=== PATIENT | female | born 1990 | race Caucasian/White ===

== ENCOUNTER 2022-07-06 08:19 | Outpatient (CLI) | payer OTHER, SELFPAY ==
[2022-07-06 11:05] LABS: Cholesterol* 256 mg/dL (90-199); Glucose* 93 mg/dL (60-115); Triglycerides* 105 mg/dL (40-149)
[2022-07-06 11:06] LABS: HDL Cholesterol* 74 mg/dL (>=50); LDL Cholesterol Calculated 161 mg/dL (<100)
== END 2022-07-06 08:20 | disposition home or self-care (01) ==
PROVIDERS: Visit Provider Physician Assistant
DX: Z01.419 Encounter for gynecological examination (general) (routine) without abnormal findings (principal); E03.9 Hypothyroidism, unspecified; F41.9 Anxiety disorder, unspecified; F32.A Depression, unspecified; Z13.6 Encounter for screening for cardiovascular disorders; Z13.1 Encounter for screening for diabetes mellitus
CPT/HCPCS: 80061; 82947; 84443

== ENCOUNTER 2023-09-03 17:10 | Outpatient (CLI) | payer OTHER, SELFPAY | END 2023-09-03 17:11 | disposition home or self-care (01) | LOC: NFLDREF 09-05 07:34 | PROVIDERS: Visit Provider Advanced Practice Midwife | DX: Z01.419 Encounter for gynecological examination (general) (routine) without abnormal findings (principal); E03.9 Hypothyroidism, unspecified; F41.9 Anxiety disorder, unspecified; F32.A Depression, unspecified; Z13.6 Encounter for screening for cardiovascular disorders | CPT/HCPCS: 80061; 84443 ==

== ENCOUNTER 2024-10-07 15:58 | Outpatient (CLI) | payer BC, SELFPAY ==
--- NOTE | 2024-10-07 16:00 | CRLHL7_ITS ---
For Patients: As a result of the Century Cures Act, medical imaging exams and procedure reports are released immediately into your electronic medical record. You may view this report before your referring provider. If you have questions, please contact your health care provider. INDICATION: Heavy and frequent menstruation TECHNIQUE: Transabdominal and transvaginal scanning was performed. Transvaginal scanning was performed to optimally evaluate the endometrium and adnexa. Ovarian blood flow was evaluated with color-flow and pulsed Doppler. COMPARISON: None. FINDINGS: The uterus is mildly enlarged grossly normal in shape. The uterus measures 9.3 x 4.9 x 6.9 cm. No myometrial mass is evident. The endometrial stripe is normal in thickness at 11 mm. The ovaries are normal in size and contain a number of follicles. The right ovary measures 3.2 x 1.8 x 1.5 cm and left 4.2 x 2.1 x 2.0 cm. Ovarian blood flow is demonstrated with color-flow and pulsed Doppler. No adnexal mass is evident. A trace of physiologic free fluid is noted. IMPRESSION: 1. Normal thickness endometrial stripe of 11 mm. 2. Mildly enlarged uterus. Dictated by Socrates Stallings MD @ 10/09/2024 6:52:05 AM (Electronically Signed)
== END 2024-10-07 15:59 | disposition home or self-care (01) ==
LOC: US 15:58
PROVIDERS: PCP Nurse Practitioner Family; Visit Provider Physician Assistant
DX: N92.0 Excessive and frequent menstruation with regular cycle (principal); N85.2 Hypertrophy of uterus; N94.6 Dysmenorrhea, unspecified
CPT/HCPCS: 76830; 76856

== ENCOUNTER 2024-10-13 07:42 | Outpatient (CLI) | payer BC, SELFPAY | END 2024-10-13 07:43 | disposition home or self-care (01) | LOC: NFLDREF 10-16 21:18 | PROVIDERS: PCP Nurse Practitioner Family; Referring Provider Nurse Practitioner Family; Visit Provider Physician Assistant | DX: N92.0 Excessive and frequent menstruation with regular cycle (principal); Z13.6 Encounter for screening for cardiovascular disorders; Z13.1 Encounter for screening for diabetes mellitus | CPT/HCPCS: 80061; 82947; 84443 ==

== ENCOUNTER 2025-10-11 18:01 | Outpatient (CLI) | payer BC, SELFPAY ==
[2025-10-13 23:53] LABS: HPV Source Cervix
[2025-10-15 08:58] LABS: Pap Test Digital Imaging Done
== END 2025-10-11 18:02 | disposition home or self-care (01) ==
PROVIDERS: PCP Nurse Practitioner Family; Visit Provider Physician Assistant
DX: Z12.4 Encounter for screening for malignant neoplasm of cervix (principal); E03.9 Hypothyroidism, unspecified; R45.4 Irritability and anger
CPT/HCPCS: 82306; 84439; 84443; 87624; 87625; 88141; 88142; 88175